=== PATIENT | female | born 1970 | race Caucasian/White ===

== ENCOUNTER 2020-03-20 00:26 | Outpatient (CLI) | payer OTHER, SELFPAY ==
[2020-03-20 16:46] LABS: SARS-CoV-2 RNA PCR Negative
== END 2020-03-20 00:27 | disposition home or self-care (01) ==
LOC: ANHCOVIDDT 00:27
PROVIDERS: Visit Provider Surgery Plastic and Reconstructive Surgery
DX: Z01.818 Encounter for other preprocedural examination (principal); Z11.59 Encounter for screening for other viral diseases
CPT/HCPCS: 87635; C9803; U0003

== ENCOUNTER 2020-03-23 00:37 | Day surgery (SDC) | payer OTHER, SELFPAY ==
[2020-03-15 13:46] VITALS: BMI 36.8
[2020-03-23] VITALS (9 sets, daily range): BP systolic 109–128; BP diastolic 60–73; PULSE 76–96; RESP 12–20; TEMP 36.8–37.7; O2SAT 96–100
[2020-03-23] MEDS: LACTATED RINGERS 1,000 ML 30 ML IV CONT ×2 (06:30→10:07)
[2020-03-23 06:33] LABS: Urine Cotinine NEGATIVE
--- NOTE | 2020-03-23 06:46 | WPDHPUPDATE1 ---
History and Physical Update Update Date/Time: 03/23/20 06:46 History and Physical has been reviewed, including an updated exam of the patient. There are NO changes in the patient's condition. Risks, benefits, and alternatives have been discussed and questions answered. Patient agrees to proceed with procedure.
--- NOTE | 2020-03-23 06:50 | WPDANESEPPF ---
Anes - Initial Pre Proc Eval Procedure: Operation Date: 03/23/20 07:30 Proposed Procedures p Bilateral Reduction Mammoplasty - Corey Nuñez MD Date/Time: 03/23/20 06:50 Surgeon: Corey Nuñez MD Pre Op Diagnosis: Micromastia Patient Data Age: 49 Gender: F Height: 5 ft 4 in Weight: 97.52 kg Allergies Allergy/AdvReac Type Severity Reaction Status Date / Time Sulfa (Sulfonamide Allergy Unknown Rash Verified 03/16/20 09:58 Antibiotics) Home Medications Medication Instructions Recorded Confirmed Type alprazolam 0.25 mg tablet 0.25 mg PO TID PRN 03/08/20 03/15/20 History cetirizine 10 mg capsule 10 mg PO DAILY 03/08/20 03/15/20 History cyclobenzaprine 10 mg tablet 10 mg PO HS 03/08/20 03/15/20 History docusate sodium 100 mg capsule 100 mg PO DAILY #14 cap 03/08/20 03/15/20 Rx duloxetine 60 mg capsule,delayed 60 mg PO QPM 03/08/20 03/15/20 History release hydrocodone 5 mg-acetaminophen 325 1 tablet PO Q6H PRN #15 tablet 03/08/20 03/15/20 Rx mg tablet meloxicam 15 mg tablet 15 mg PO DAILY 03/08/20 03/15/20 History tramadol 50 mg tablet 50 mg PO Q6H PRN 03/08/20 03/15/20 History trazodone 100 mg tablet 100 mg PO BID 03/08/20 03/15/20 History L.acid-B.bifidum-B.animal-FOS 100 mg PO DAILY 03/15/20 03/15/20 History [Probiotic Complex] Vitamin D3 1 tablet PO DAILY 03/15/20 03/15/20 History calcium carb-magnesium carb 1 tablet PO DAILY 03/15/20 03/15/20 History omega 3-ggx-ahn-fish oil [Fish Oil] 1 cap PO DAILY 03/15/20 03/15/20 History Laboratory Tests 03/23/20 06:18 Cotinine Negative Patient hx anesthesia problems: none Family hx anesthesia problems: none PMFSH Past Medical History Medical History Anxiety Depression Social History Social History Smoking status: Never smoker Anes - Eval Final PreProcedure Day of Procedure 03/23/20 06:50 Patient weight: obese Heart: regular rate and rhythm Lungs: clear to auscultation Airway: Mallampati scale class 1 Neurological: alert and oriented Last oral intake: >/= 8 hours ASA classification: II Emergent: no Anesthetic plan: proceed Anesthesia type and monitoring: general LMA and standard monitoring Informed Consent: The patient's anesthetic plan and its attendant risks and benefits were discussed with the patient/family/POA. Questions were solicited and answers provided to the satisfaction of the patient/family/POA.
--- NOTE | 2020-03-23 07:04 | PM.PROC ---
Procedure Note - Detailed Date of procedure: 03/23/20 Pre-op diagnosis: Micromastia Correction - Macromastia History Breast Reduction Post-op diagnosis: other (1. Macromastia 2. History Breast Reduction) Procedure performed: Bilateral breast reduction Description of procedure: She is here today for bilateral breast reduction. Previously and again today the risks, benefits, alternatives were discussed in extensive detail. I wanted her to be very realistic about the risks involved as well as expectations. We discussed aftercare and what to monitor for. She understands we can never guarantee final breast size and there will always be asymmetry. I was very upfront and honest about the risks of sensation change and even nipple loss () which is always a risk; however, given her history of breast reduction I was very clear she is at a higher risk and outlined the literature on this so she made a well informed decision. She understands she has fullness of lateral chest wall and always will. Made sure answered all of her questions to her satisfaction today and consent was obtained. She was marked in the preoperative holding area with their verification. The patient was taken to the operating room placed supine on the operating table. Anesthesia was provided by anesthesiology. She was prepped and draped in a standard sterile fashion. A surgical time-out was taken. Stab incisions were made and I tumessed with a tumescent solution. I marked out the nipple-areolar complex at 42 mm. I then de-epithelialized the pedicle. The pedicle was well left well more than 2 cm in thickness. I then removed the inferior portion of the breast as well as the central keel to get shape based on preoperative planning. At this point copiously irrigated with saline solution and verified a strict hemostasis. I reapproximated the pillars using a 2-0 PDS as well as along the IMF. I tailor tacked the breast into place with keya. She was placed in a sitting position. Laterally bilateral she had some contour irregularity and S.A.F.E. liposuction using a 4mm basket canula was used just for shape lateraly, minimal volume. I verified the nipple-areolar complex position based on preoperative markings, intraoperative measurements, and observation which were in full agreement. This nipple-areolar complex was marked at 42 mm in size. I then placed supine and de-epithelialized this leaving the pedicle as large as possible as this was a repeat breast reduction. Nipple-areolar complex was inset with 3-0 Monocryl. I closed the vertical incision with 3-0 Monocryl in the IMF with 3-0 stratafix. Then everything was closed using a running subcuticular 4-0 Monocryl followed by Steri-Strips. A dressing was placed followed by surgical bra. Patient was awoke and taken to PACU without difficulty. All instrument sponge counts were correct at the end of the case. Anesthesia: GLMA Surgeon: Corey Nuñez MD Estimated blood loss (mL): 30 Drains: No Packing: No Pathology: yes Complications: No immediate complications Condition: stable Disposition: PACU Findings: Broad based superior pedicle. Right: 644.6 grams Left: 547.1 grams
[2020-03-23] MEDS: ceFAZolin 2 GM/D5W 50 ML 2 GM/50 ML BAG IVPB (07:23)
== END 2020-03-23 12:22 | disposition home or self-care (01) ==
PROVIDERS: Visit Provider Surgery Plastic and Reconstructive Surgery
PROC: 0HBV0ZZ Excision of Bilateral Breast, Open Approach (ICD-10-PCS; CPT 19318; principal; 2020-03-23 07:30)
DX: N62 Hypertrophy of breast (principal); N60.32 Fibrosclerosis of left breast; N60.31 Fibrosclerosis of right breast; N60.42 Mammary duct ectasia of left breast; N60.41 Mammary duct ectasia of right breast; N60.82 Other benign mammary dysplasias of left breast; F41.8 Other specified anxiety disorders; Z79.899 Other long term (current) drug therapy; E66.9 Obesity, unspecified; Z68.37 Body mass index [BMI] 37.0-37.9, adult
CPT/HCPCS: 19318; 36415; 80307; 88305; A9270; J0171; J0690; J1100; J1170; J2250; J2405; J2704; J3010; J7120

== ENCOUNTER → 2020-05-03 14:18 | Outpatient (REF) | payer OTHER, SELFPAY | LOC: ANHLAB 14:18 | PROVIDERS: Visit Provider Nurse Practitioner | DX: D49.2 Neoplasm of unspecified behavior of bone, soft tissue, and skin (principal); D22.61 Melanocytic nevi of right upper limb, including shoulder | CPT/HCPCS: 88305 ==